=== PATIENT | male | born 1955 | race Caucasian/White ===

== ENCOUNTER → 2019-07-09 | Outpatient (CLI) | payer OTHER ==
[~2019-07-09] MED LIST: ASPI81TA83 PO; BACT800T OR; CLARITIN-D PO; EXCETAB PO; NAPROXEN SODIUM PO; SILD25TA OR; VITA500T PO
--- NOTE | 2019-07-09 21:19 | ECHO ---
DATE OF PROCEDURE: 07/09/2019 REFERRING PROVIDER: Dr. Mauro Leonard PATIENT LOCATION: Outpatient. REASON FOR THE STUDY: Heart murmur, hyperlipidemia. 2D MEASUREMENTS: IVS: 1.3 cm LV: 4.4 cm LVPW: 1.1 cm LA: 3.5 cm Aorta: 3.5 cm IVC: 1.4 cm DOPPLER MEASUREMENTS: Peak velocity across the aortic valve: 1.2 meters per second. Peak velocity across the LVOT: 0.8 meters per second. Mitral E: 0.66, Mitral A: 0.92 with a ratio of 0.7. 2D COMMENTS: 1. Normal left ventricular size with mildly increased left ventricular wall thickness. Left ventricular systolic function is normal, estimated at 60-65%. 2. Normal left atrium. Normal right atrium and right ventricle. 3. The atrial septum appeared to be normal without evidence of defect or shunt. 4. Normal aortic root. 5. No pericardial effusion seen. 6. Mildly calcified aortic valve with normal leaflet excursion. Mildly calcified mitral annulus with normal anterior mitral valve leaflet motion. Normal tricuspid valve and pulmonic valve. The proximal pulmonary artery branches were not well visualized. 7. The inferior vena cava was normal in size, central venous pressure is most likely normal. DOPPLER: Only trace aortic regurgitation detected. Abnormal relaxation pattern was noted across the mitral valve leaflets as well as the mitral valve annulus consistent with features of grade 1 left ventricular diastolic dysfunction. IMPRESSION: 1. Normal global left ventricular systolic function with mild concentric left ventricular hypertrophy. There are some features of left ventricular diastolic dysfunction manifested by abnormal relaxation. 2. Aortic valve sclerosis with trace aortic regurgitation but no aortic stenosis. 3. Isolated mitral annulus calcification.
== END ==
LOC: M CARPUL 08:47
PROVIDERS: ATTEND Internal Medicine
DX: E78.2 Mixed hyperlipidemia (principal); Z87.891 Personal history of nicotine dependence; G47.30 Sleep apnea, unspecified

== ENCOUNTER → 2020-05-11 | Outpatient (CLI) | payer SELFPAY | LOC: M LABSMTC 11:19 | PROVIDERS: ATTEND Pediatrics | DX: Z20.828 Contact with and (suspected) exposure to other viral communicable diseases (principal) ==

== ENCOUNTER → 2021-12-17 | Outpatient (REF) | LOC: M PLAIMG 11:15 | PROVIDERS: ATTEND Internal Medicine | DX: M19.90 Unspecified osteoarthritis, unspecified site (principal) ==

== ENCOUNTER 2022-09-16 14:22 | Day surgery (SDC) | payer MEDICARE, OTHER ==
[~2022-09-16] VITALS: Ht 188 cm; Wt 105.9 kg
[~2022-09-16 14:22] MED LIST changes: +ASPI-1 PO; +BUSP10TA PO; +BUSP10TA79 PO; +COQ1200C PO; +CelecoXIB 400 MG CAP PO ONE; +KORE1000 PO; +LORA-674 PO; +PLAQ200T4 PO; +ROSU40TA4 PO; +UNRESOLVED CLARIFICATION ENTRY XX SCH; +VITA100093 PO; +VITA500T16 PO; +VITACAP8 PO
[2022-09-16] MEDS ORDERED: LR 1,000 ML IV SCH (14:30)
[2022-09-16] MEDS ORDERED: AMPICILLIN SOD/SULBACTAM SOD 3 GM in D5W MINI-BAG PLUS 100 ML IV ONE (15:00)
[2022-09-16] MEDS ORDERED: CelecoXIB 400 MG CAP PO ONE (15:00)
[2022-09-16] MEDS ORDERED: MIDAZOLAM INJ 2MG/2ML VIAL As Ordered ONE (15:34)
[2022-09-16] MEDS ORDERED: propofoL 200 MG/20 ML VIAL As Ordered ONE (15:34)
[2022-09-16] MEDS ORDERED: ROCURONIUM BROMIDE 50MG/5ML VIAL As Ordered ONE (15:34)
[2022-09-16] MEDS ORDERED: fentaNYL 250 MCG/5 ML INJECTION As Ordered ONE (15:34)
[2022-09-16] MEDS ORDERED: LIDOCAINE 2% 100MG/5ML SDV (FOR ANES.) As Ordered ONE (15:34)
[2022-09-16] MEDS ORDERED: ACETAMINOPHEN 1000MG 100ML IV BAG As Ordered ONE (16:59)
[2022-09-16] MEDS ORDERED: BUPIVACAINE HCL 0.25% 30ML VIAL As Ordered ONE (17:05)
[2022-09-16] MEDS ORDERED: BUPIVACAINE HCL 0.5% 30ML VIAL As Ordered ONE (17:05)
[2022-09-16] MEDS ORDERED: LIDOCAINE 1% SDV 30ML VIAL As Ordered ONE (17:05)
[2022-09-16] MEDS ORDERED: ONDANSETRON 4MG 2ML VIAL As Ordered ONE (17:35)
[2022-09-16] MEDS ORDERED: METOCLOPRAMIDE INJ 10MG/2ML VIAL As Ordered ONE (17:37)
[2022-09-16] MEDS ORDERED: SUGAMMADEX SODIUM 500 MG/5 ML VIAL (BRIDION) As Ordered ONE (18:46)
[2022-09-16] MEDS ORDERED: HYDROMORPHONE HCL 0.5 MG/ 0.5 ML SYRINGE IV PRN (19:05)
[2022-09-16] MEDS ORDERED: oxyCODONE 5MG TAB PO PRN (19:05)
[2022-09-16] MEDS ORDERED: ONDANSETRON 4MG 2ML VIAL IV PRN (19:05)
[2022-09-16] MEDS ORDERED: fentaNYL 100 MCG/2 ML INJECTION IV PRN (19:05)
[2022-09-16 20:05] VITALS: BP 143/86
== END 2022-09-16 20:16 | disposition home or self-care (01) ==
LOC: M SDC 14:22
PROVIDERS: ATTEND Surgery
DX: K40.31 Unilateral inguinal hernia, with obstruction, without gangrene, recurrent (principal); D17.6 Benign lipomatous neoplasm of spermatic cord; E78.00 Pure hypercholesterolemia, unspecified; K21.9 Gastro-esophageal reflux disease without esophagitis; M19.90 Unspecified osteoarthritis, unspecified site; F41.9 Anxiety disorder, unspecified; M54.9 Dorsalgia, unspecified; F43.10 Post-traumatic stress disorder, unspecified; R51.9 Headache, unspecified; G47.30 Sleep apnea, unspecified; Z87.891 Personal history of nicotine dependence; Z79.899 Other long term (current) drug therapy; Z79.82 Long term (current) use of aspirin
CPT/HCPCS: 49651; 88304; C1781; J0131; J0295; J1100; J2250; J2405; J2765; J3010; S2900

== ENCOUNTER 2022-10-29 11:04 | Inpatient (IN) | payer OTHER ==
[~2022-10-29] VITALS: Ht 188 cm; Wt 111.6 kg
[~2022-10-29 11:04] MED LIST changes: -CelecoXIB 400 MG CAP PO ONE; -UNRESOLVED CLARIFICATION ENTRY XX SCH
[2022-10-29] MEDS ORDERED: ACET-683 PO (11:20)
[2022-10-29] MEDS ORDERED: NS 1,000 ML IV ONE (12:15)
[2022-10-29] MEDS ORDERED: cefTRIAXone SOD 2 GM in D5W MINI-BAG PLUS 50 ML IV ONE (12:20)
[2022-10-29 12:29] LABS: HEMATOCRIT 42.3 % (42.0-52.0); HEMOGLOBIN 14.9 g/dl (13.5-17.5); MEAN CORPUSCULAR HEMOGLOBIN 28.8 pg (27.0-33.0); MEAN CORPUSCULAR HGB CONC 35.2 g/dl (32.0-36.5); MEAN CORPUSCULAR VOLUME 81.8 fl (80.0-96.0); RED BLOOD COUNT 5.17 10^6/uL (4.30-6.10); WHITE BLOOD COUNT 7.9 10^3/uL (4.0-10.0)
[2022-10-29 12:38] LABS: INR 1.11; PROTHROMBIN TIME 14.5 SECONDS (12.5-14.5)
[2022-10-29] MEDS ORDERED: ACETAMINOPHEN TAB 650MG DOSE (2X325MG) PO ONE (12:40)
[2022-10-29 12:42] LABS: PLATELET COUNT, AUTOMATED 66 10^3/uL (150-450)
[2022-10-29 12:48] LABS: ATYPICAL LYMPH 6 % (0-5); BASOPHILS 1 % (0-1); EOSINOPHILS 1 % (0-3); LYMPHOCYTES 13 % (16-44); MONOCYTES 5 % (0-5); NEUTROPHILS 62 % (28-66)
[2022-10-29 12:55] LABS: AMYLASE 47 U/L (30-118)
[2022-10-29 12:56] LABS: ALBUMIN 3.2 G/DL (3.2-5.2); ALKALINE PHOSPHATASE 135 U/L (46-116); ALT/SGPT 137 U/L (7.0-40); AST/SGOT 118 U/L (<34); BILIRUBIN,DIRECT 1.2 MG/DL (<0.4); BILIRUBIN,TOTAL 2.9 MG/DL (0.3-1.2); BLOOD UREA NITROGEN 15 MG/DL (9-23); CALCIUM LEVEL 8.1 MG/DL (8.3-10.6); CARBON DIOXIDE LEVEL 25 MMOL/L (20-31); CHLORIDE LEVEL 95 MMOL/L (98-107); CREATININE FOR GFR 0.84 MG/DL (0.70-1.30); GLOMERULAR FILTRATION RATE > 60.0 (>49); GLUCOSE, FASTING 127 MG/DL (74-106); POTASSIUM SERUM 3.7 MMOL/L (3.5-5.1); SODIUM LEVEL 128 MMOL/L (136-145); TOTAL PROTEIN 7.2 G/DL (5.7-8.2)
[2022-10-29 13:11] LABS: PLATELET ESTIMATE DECREASED (NORMAL)
[2022-10-29] MEDS ORDERED: NS 2,000 ML IV ONE (14:25)
[2022-10-29] MEDS ORDERED: IBUPROFEN 600MG TAB PO ONE (14:45)
[2022-10-29] MEDS: AZITHROMYCIN INJ 500 MG, VIAL MATE ADAPTER 1 EACH in NS 250 ML IV SCH (14:52)
[2022-10-29] MEDS ORDERED: [UNRECOGNIZED DRUG - CODE] PO (14:54)
[2022-10-29] MEDS ORDERED: HOME MED LIST COMPLETE! XX SCH (14:55)
[2022-10-29 15:12] LABS: APPEARANCE, URINE MANUAL CLEAR (CLEAR); COLOR, URINE MANUAL AMBER (YELLOW)
[2022-10-29 15:13] LABS: GLUCOSE, URINE (UA) MANUAL NEGATIVE (NEGATIVE); PH,URINE MAN 5.5 UNITS (5.0 - 7.0); PROTEIN, URINE MANUAL 2+ mg/dL (NEGATIVE); UROBILINOGEN, URINE MANUAL 12 mg/dl (NORMAL)
[2022-10-29 15:14] LABS: BILIRUBIN, URINE MANUAL OBSCURED (NEGATIVE); KETONE, URINE MANUAL OBSCURED mg/dL (NEGATIVE); LEUKOCYTE ESTERASE, URINE MAN OBSCURED (NEGATIVE); NITRITE, URINE MANUAL OBSCURED (NEGATIVE)
[2022-10-29 15:15] LABS: BLOOD URINE MANUAL OBSCURED (NEGATIVE)
[2022-10-29 15:30] LABS: SQUAMOUS EPITHELIAL CELL URINE SMALL AMOUNT /hpf (SMALL AMT)
[2022-10-29 15:31] LABS: AMORPHOUS SEDIMENT, URINE MOD AMOUNT (NEGATIVE); BACTERIA, URINE SMALL AMOUNT; MUCUS, URINE SMALL AMOUNT (NEGATIVE); RENAL EPITHELIAL CELLS, URINE SMALL AMOUNT /hpf
[2022-10-29 16:27] LABS: OSMOLALITY SERUM 265 MOSM/KG (280-301)
[2022-10-29 16:30] LABS: BLOOD UREA NITROGEN 15 MG/DL (9-23); CALCIUM LEVEL 7.2 MG/DL (8.3-10.6); CARBON DIOXIDE LEVEL 24 MMOL/L (20-31); CHLORIDE LEVEL 100 MMOL/L (98-107); CREATININE FOR GFR 0.84 MG/DL (0.70-1.30); GLOMERULAR FILTRATION RATE > 60.0 (>49); GLUCOSE, FASTING 127 MG/DL (74-106); POTASSIUM SERUM 3.5 MMOL/L (3.5-5.1); SODIUM LEVEL 130 MMOL/L (136-145)
[2022-10-29 16:36] VITALS: BP 109/67; TEMP 97.2; O2SAT 97
[2022-10-29 16:39] LABS: ACETAMINOPHEN LEVEL 6.4 UG/ML (10.0-20.0)
[2022-10-29 16:50] LABS: HEPATITIS B SURFACE ANTIGEN NEGATIVE (NEGATIVE)
[2022-10-29 17:10] LABS: HEPATITIS C VIRUS ABY INDEX 0.1 INDEX (<0.8)
[2022-10-29 17:11] LABS: HEPATITIS B CORE ANTIBODY IGM NEGATIVE (NEGATIVE)
[2022-10-29] MEDS: busPIRone 5 MG TAB PO SCH (17:17)
[2022-10-29] MEDS: NS 1,000 ML IV SCH (17:18)
[2022-10-29 20:32] VITALS: BP 115/65; TEMP 98.6; O2SAT 96
[2022-10-29] MEDS: HYDROXYCHLOROQUINE 200 MG TAB PO SCH (21:48)
[2022-10-29] MEDS: busPIRone 10 MG TAB PO SCH (21:48)
[2022-10-29] MEDS: ATOVAQUONE SUSP 750MG/5ML 210 ML BTL PO SCH (21:48)
[2022-10-29 22:04] LABS: BLOOD UREA NITROGEN 17 MG/DL (9-23); CALCIUM LEVEL 7.5 MG/DL (8.3-10.6); CARBON DIOXIDE LEVEL 24 MMOL/L (20-31); CHLORIDE LEVEL 101 MMOL/L (98-107); CREATININE FOR GFR 0.84 MG/DL (0.70-1.30); GLOMERULAR FILTRATION RATE > 60.0 (>49); GLUCOSE, FASTING 107 MG/DL (74-106); POTASSIUM SERUM 4.1 MMOL/L (3.5-5.1); SODIUM LEVEL 133 MMOL/L (136-145)
[2022-10-30] VITALS (8 sets, daily range): BP systolic 104–149; BP diastolic 55–83; TEMP 97.8–103.4; O2SAT 93–98
[2022-10-30] MEDS: NS 1,000 ML IV SCH (00:40)
[2022-10-30] MEDS: NAPROXEN 250 MG TAB PO PRN (04:53)
[2022-10-30 06:53] LABS: HEMATOCRIT 36.6 % (42.0-52.0); MEAN CORPUSCULAR HEMOGLOBIN 28.4 pg (27.0-33.0); MEAN CORPUSCULAR HGB CONC 33.9 g/dl (32.0-36.5); MEAN CORPUSCULAR VOLUME 83.8 fl (80.0-96.0); RED BLOOD COUNT 4.37 10^6/uL (4.30-6.10); WHITE BLOOD COUNT 5.8 10^3/uL (4.0-10.0)
[2022-10-30 07:02] LABS: PLATELET COUNT, AUTOMATED 62 10^3/uL (150-450)
[2022-10-30 07:03] LABS: HEMOGLOBIN 12.4 g/dl (13.5-17.5)
[2022-10-30 07:14] LABS: ALBUMIN 2.5 G/DL (3.2-5.2); ALKALINE PHOSPHATASE 134 U/L (46-116); ALT/SGPT 145 U/L (7.0-40); AST/SGOT 148 U/L (<34); BILIRUBIN,TOTAL 2.5 MG/DL (0.3-1.2); BLOOD UREA NITROGEN 12 MG/DL (9-23); CALCIUM LEVEL 7.7 MG/DL (8.3-10.6); CARBON DIOXIDE LEVEL 24 MMOL/L (20-31); CHLORIDE LEVEL 99 MMOL/L (98-107); CREATININE FOR GFR 0.71 MG/DL (0.70-1.30); GLOMERULAR FILTRATION RATE > 60.0 (>49); GLUCOSE, FASTING 143 MG/DL (74-106); MAGNESIUM LEVEL 1.2 MG/DL (1.8-2.4); PHOSPHORUS LEVEL 1.4 MG/DL (2.4-5.1); POTASSIUM SERUM 3.3 MMOL/L (3.5-5.1); SODIUM LEVEL 131 MMOL/L (136-145); TOTAL PROTEIN 5.8 G/DL (5.7-8.2)
[2022-10-30 07:29] LABS: ATYPICAL LYMPH 2 % (0-5); LYMPHOCYTES 10 % (16-44); MONOCYTES 4 % (0-5); NEUTROPHILS 77 % (28-66)
[2022-10-30 07:31] LABS: PLATELET ESTIMATE DECREASED (NORMAL)
[2022-10-30 07:33] LABS: SMUDGE CELLS 1+
[2022-10-30] MEDS ORDERED: POTASSIUM CHLORIDE 10MEQ SR TABLET PO ONE (08:00)
[2022-10-30] MEDS: busPIRone 10 MG TAB PO SCH ×2 (08:20→20:16)
[2022-10-30] MEDS: LORATADINE 10 MG TAB PO SCH (08:20)
[2022-10-30] MEDS: VITAMIN D 1,000 INTERNATIONAL UNITS TABLET PO SCH (08:20)
[2022-10-30] MEDS: MAG SULF 1GM/100ML (MAG RUN) 1 GM in IV 1 EA IV SCH ×2 (08:20→09:38)
[2022-10-30] MEDS: HYDROXYCHLOROQUINE 200 MG TAB PO SCH ×2 (08:20→20:16)
[2022-10-30] MEDS: ATOVAQUONE SUSP 750MG/5ML 210 ML BTL PO SCH ×2 (08:20→20:17)
[2022-10-30] MEDS ORDERED: ROSUVASTATIN 10 MG TAB (CRESTOR) PO SCH (09:00)
[2022-10-30] MEDS ORDERED: SODIUM PHOSPHATE INJ 20 MMOL in D5W 250 ML IV ONE (10:00)
[2022-10-30] MEDS ORDERED: NAPROXEN 250 MG TAB PO ONE (13:00)
[2022-10-30] MEDS: AZITHROMYCIN INJ 500 MG, VIAL MATE ADAPTER 1 EACH in NS 250 ML IV SCH (13:21)
[2022-10-30] MEDS: busPIRone 5 MG TAB PO SCH (13:21)
[2022-10-31] VITALS (9 sets, daily range): BP systolic 112–142; BP diastolic 65–90; TEMP 97.6–101.6; O2SAT 95–97
[2022-10-31] MEDS: NAPROXEN 250 MG TAB PO PRN ×2 (04:19→15:45)
[2022-10-31 04:21] LABS: HEMATOCRIT 35.9 % (42.0-52.0); HEMOGLOBIN 12.5 g/dl (13.5-17.5); MEAN CORPUSCULAR HEMOGLOBIN 28.5 pg (27.0-33.0); MEAN CORPUSCULAR HGB CONC 34.8 g/dl (32.0-36.5); RED BLOOD COUNT 4.38 10^6/uL (4.30-6.10); WHITE BLOOD COUNT 6.2 10^3/uL (4.0-10.0)
[2022-10-31 04:23] LABS: PLATELET COUNT, AUTOMATED 45 10^3/uL (150-450)
[2022-10-31 04:42] LABS: ATYPICAL LYMPH 6 % (0-5); LYMPHOCYTES 9 % (16-44); MONOCYTES 2 % (0-5); NEUTROPHILS 81 % (28-66)
[2022-10-31 04:43] LABS: PLATELET ESTIMATE DECREASED (NORMAL); SMUDGE CELLS 1+
[2022-10-31 04:54] LABS: ALBUMIN 2.5 G/DL (3.2-5.2); ALKALINE PHOSPHATASE 151 U/L (46-116); ALT/SGPT 187 U/L (7.0-40); AST/SGOT 203 U/L (<34); BILIRUBIN,DIRECT 1.5 MG/DL (<0.4); BILIRUBIN,TOTAL 2.5 MG/DL (0.3-1.2); BLOOD UREA NITROGEN 13 MG/DL (9-23); CALCIUM LEVEL 7.3 MG/DL (8.3-10.6); CARBON DIOXIDE LEVEL 25 MMOL/L (20-31); CHLORIDE LEVEL 98 MMOL/L (98-107); CREATININE FOR GFR 0.64 MG/DL (0.70-1.30); GLOMERULAR FILTRATION RATE > 60.0 (>49); GLUCOSE, FASTING 138 MG/DL (74-106); MAGNESIUM LEVEL 1.7 MG/DL (1.8-2.4); PHOSPHORUS LEVEL 1.8 MG/DL (2.4-5.1); POTASSIUM SERUM 3.5 MMOL/L (3.5-5.1); SODIUM LEVEL 130 MMOL/L (136-145); TOTAL PROTEIN 5.8 G/DL (5.7-8.2)
[2022-10-31 04:59] LABS: BURR CELLS 1+; POLYCHROMASIA 1+
[2022-10-31] MEDS ORDERED: POTASSIUM CHLORIDE 10MEQ SR TABLET PO ONE (06:30)
[2022-10-31] MEDS: MAG SULF 1GM/100ML (MAG RUN) 1 GM in IV 1 EA IV SCH ×2 (06:44→07:50)
[2022-10-31] MEDS ORDERED: SODIUM PHOSPHATE INJ 20 MMOL in D5W 250 ML IV ONE (08:00)
[2022-10-31 12:32] LABS: INR 1.07; PROTHROMBIN TIME 14.1 SECONDS (12.5-14.5)
[2022-10-31 12:33] LABS: PARTIAL THROMBOPLASTIN TIME 36.5 SECONDS (24.8-34.2)
[2022-10-31] MEDS: LORATADINE 10 MG TAB PO SCH (13:27)
[2022-10-31] MEDS: HYDROXYCHLOROQUINE 200 MG TAB PO SCH ×2 (13:27→20:40)
[2022-10-31] MEDS: VITAMIN D 1,000 INTERNATIONAL UNITS TABLET PO SCH (13:27)
[2022-10-31] MEDS: busPIRone 5 MG TAB PO SCH (13:27)
[2022-10-31] MEDS: busPIRone 10 MG TAB PO SCH ×2 (13:27→20:40)
[2022-10-31] MEDS: AZITHROMYCIN 250MG TABLET PO SCH (13:28)
[2022-10-31] MEDS: ATOVAQUONE SUSP 750MG/5ML 210 ML BTL PO SCH ×2 (13:28→20:41)
[2022-11-01 04:00] VITALS: BP 112/70; TEMP 96.5; O2SAT 94
[2022-11-01 06:47] LABS: HEMATOCRIT 39.3 % (42.0-52.0); HEMOGLOBIN 13.5 g/dl (13.5-17.5); MEAN CORPUSCULAR HEMOGLOBIN 28.5 pg (27.0-33.0); MEAN CORPUSCULAR HGB CONC 34.4 g/dl (32.0-36.5); MEAN CORPUSCULAR VOLUME 83.1 fl (80.0-96.0); RED BLOOD COUNT 4.73 10^6/uL (4.30-6.10); WHITE BLOOD COUNT 6.3 10^3/uL (4.0-10.0)
[2022-11-01 06:48] LABS: PLATELET COUNT, AUTOMATED 51 10^3/uL (150-450)
[2022-11-01 07:02] LABS: ALBUMIN 2.7 G/DL (3.2-5.2); ALKALINE PHOSPHATASE 184 U/L (46-116); ALT/SGPT 247 U/L (7.0-40); AST/SGOT 249 U/L (<34); BILIRUBIN,TOTAL 2.8 MG/DL (0.3-1.2); BLOOD UREA NITROGEN 11 MG/DL (9-23); CALCIUM LEVEL 7.9 MG/DL (8.3-10.6); CARBON DIOXIDE LEVEL 28 MMOL/L (20-31); CHLORIDE LEVEL 99 MMOL/L (98-107); CREATININE FOR GFR 0.62 MG/DL (0.70-1.30); GLOMERULAR FILTRATION RATE > 60.0 (>49); GLUCOSE, FASTING 104 MG/DL (74-106); MAGNESIUM LEVEL 2.1 MG/DL (1.8-2.4); PHOSPHORUS LEVEL 2.6 MG/DL (2.4-5.1); POTASSIUM SERUM 3.5 MMOL/L (3.5-5.1); SODIUM LEVEL 133 MMOL/L (136-145); TOTAL PROTEIN 6.6 G/DL (5.7-8.2)
[2022-11-01 07:17] LABS: ATYPICAL LYMPH 4 % (0-5); LYMPHOCYTES 32 % (16-44); MONOCYTES 6 % (0-5); NEUTROPHILS 58 % (28-66); PLATELET ESTIMATE DECREASED (NORMAL)
[2022-11-01 07:18] LABS: ANISOCYTOSIS 1+; POIKILOCYTOSIS 1+; POLYCHROMASIA 1+
[2022-11-01 07:32] VITALS: BP 129/82; TEMP 99.4; O2SAT 96
[2022-11-01] MEDS: HYDROXYCHLOROQUINE 200 MG TAB PO SCH (08:58)
[2022-11-01] MEDS: LORATADINE 10 MG TAB PO SCH (08:58)
[2022-11-01] MEDS: VITAMIN D 1,000 INTERNATIONAL UNITS TABLET PO SCH (08:58)
[2022-11-01] MEDS: AZITHROMYCIN 250MG TABLET PO SCH (08:58)
[2022-11-01] MEDS: busPIRone 10 MG TAB PO SCH ×2 (08:58→20:43)
[2022-11-01] MEDS: ATOVAQUONE SUSP 750MG/5ML 210 ML BTL PO SCH ×2 (11:03→22:38)
[2022-11-01] MEDS: busPIRone 5 MG TAB PO SCH (14:54)
[2022-11-01] MEDS: DOXYCYCLINE HYCLATE 100MG TABLET PO SCH ×2 (14:54→20:43)
[2022-11-01 15:49] VITALS: BP 138/74; TEMP 98.4; O2SAT 94
[2022-11-01 20:00] VITALS: BP 134/77; TEMP 98.6; O2SAT 96
[2022-11-01 20:30] VITALS: BP 119/72; TEMP 97.5; O2SAT 96
[2022-11-02 01:55] VITALS: BP 126/75; TEMP 98; O2SAT 95
[2022-11-02 05:40] VITALS: BP 119/74; TEMP 97.2; O2SAT 98
[2022-11-02 06:31] LABS: HEMATOCRIT 38.2 % (42.0-52.0); MEAN CORPUSCULAR VOLUME 82.3 fl (80.0-96.0); RED BLOOD COUNT 4.64 10^6/uL (4.30-6.10); WHITE BLOOD COUNT 5.8 10^3/uL (4.0-10.0)
[2022-11-02 06:33] LABS: PLATELET COUNT, AUTOMATED 81 10^3/uL (150-450)
[2022-11-02 07:00] LABS: ALBUMIN 2.5 G/DL (3.2-5.2); ALKALINE PHOSPHATASE 180 U/L (46-116); ALT/SGPT 225 U/L (7.0-40); AST/SGOT 183 U/L (<34); BILIRUBIN,TOTAL 1.7 MG/DL (0.3-1.2); BLOOD UREA NITROGEN 11 MG/DL (9-23); CALCIUM LEVEL 8.3 MG/DL (8.3-10.6); CARBON DIOXIDE LEVEL 26 MMOL/L (20-31); CHLORIDE LEVEL 103 MMOL/L (98-107); CREATININE FOR GFR 0.59 MG/DL (0.70-1.30); GLOMERULAR FILTRATION RATE > 60.0 (>49); GLUCOSE, FASTING 105 MG/DL (74-106); SODIUM LEVEL 134 MMOL/L (136-145); TOTAL PROTEIN 6.8 G/DL (5.7-8.2)
[2022-11-02] MEDS: DOXYCYCLINE HYCLATE 100MG TABLET PO SCH ×2 (07:49→21:00)
[2022-11-02] MEDS: ATOVAQUONE SUSP 750MG/5ML 210 ML BTL PO SCH ×2 (07:50→21:01)
[2022-11-02] MEDS: AZITHROMYCIN 250MG TABLET PO SCH (07:50)
[2022-11-02] MEDS: LORATADINE 10 MG TAB PO SCH (07:50)
[2022-11-02] MEDS: VITAMIN D 1,000 INTERNATIONAL UNITS TABLET PO SCH (07:50)
[2022-11-02] MEDS: busPIRone 10 MG TAB PO SCH ×2 (07:50→21:00)
[2022-11-02 10:00] VITALS: BP 135/79; TEMP 98.8; O2SAT 98
[2022-11-02 14:00] VITALS: BP 138/82; TEMP 98.2; O2SAT 97
[2022-11-02] MEDS: busPIRone 5 MG TAB PO SCH (14:43)
[2022-11-02] MEDS: LACTOBACILLUS ACIDOPHILUS CAP (BACID) PO SCH (18:13)
[2022-11-02 22:00] VITALS: BP 134/89; TEMP 98.2; O2SAT 97
[2022-11-02 23:42] VITALS: BP 135/91; TEMP 98.4; O2SAT 98
[2022-11-03 03:40] VITALS: BP 129/81; TEMP 97.5; O2SAT 96
[2022-11-03 07:16] LABS: HEMOGLOBIN 12.1 g/dl (13.5-17.5); MEAN CORPUSCULAR HEMOGLOBIN 27.7 pg (27.0-33.0); MEAN CORPUSCULAR HGB CONC 33.6 g/dl (32.0-36.5); MEAN CORPUSCULAR VOLUME 82.4 fl (80.0-96.0); PLATELET COUNT, AUTOMATED 140 10^3/uL (150-450); RED BLOOD COUNT 4.37 10^6/uL (4.30-6.10); WHITE BLOOD COUNT 6.7 10^3/uL (4.0-10.0)
[2022-11-03 07:40] LABS: ALBUMIN 2.5 G/DL (3.2-5.2); ALKALINE PHOSPHATASE 169 U/L (46-116); ALT/SGPT 205 U/L (7.0-40); AST/SGOT 129 U/L (<34); BILIRUBIN,TOTAL 1.1 MG/DL (0.3-1.2); BLOOD UREA NITROGEN 9 MG/DL (9-23); CALCIUM LEVEL 8.8 MG/DL (8.3-10.6); CARBON DIOXIDE LEVEL 26 MMOL/L (20-31); CHLORIDE LEVEL 101 MMOL/L (98-107); CREATININE FOR GFR 0.58 MG/DL (0.70-1.30); GLOMERULAR FILTRATION RATE > 60.0 (>49); GLUCOSE, FASTING 97 MG/DL (74-106); POTASSIUM SERUM 4.2 MMOL/L (3.5-5.1); SODIUM LEVEL 132 MMOL/L (136-145); TOTAL PROTEIN 6.8 G/DL (5.7-8.2)
[2022-11-03] MEDS: AZITHROMYCIN 250MG TABLET PO SCH (08:55)
[2022-11-03] MEDS: ATOVAQUONE SUSP 750MG/5ML 210 ML BTL PO SCH ×2 (08:55→20:19)
[2022-11-03] MEDS: DOXYCYCLINE HYCLATE 100MG TABLET PO SCH ×2 (08:55→20:19)
[2022-11-03] MEDS: LORATADINE 10 MG TAB PO SCH (08:55)
[2022-11-03] MEDS: VITAMIN D 1,000 INTERNATIONAL UNITS TABLET PO SCH (08:55)
[2022-11-03] MEDS: LACTOBACILLUS ACIDOPHILUS CAP (BACID) PO SCH ×2 (08:55→17:28)
[2022-11-03] MEDS: busPIRone 10 MG TAB PO SCH ×2 (08:55→20:19)
[2022-11-03] MEDS ORDERED: DOXY100T PO (09:24)
[2022-11-03] MEDS ORDERED: RISATAB3 PO (09:24)
[2022-11-03] MEDS ORDERED: AZIT500T5 PO (09:24)
[2022-11-03 10:00] VITALS: BP 137/82; TEMP 97.7; O2SAT 96
[2022-11-03 14:00] VITALS: BP 133/84; TEMP 97.9; O2SAT 96
[2022-11-03] MEDS: busPIRone 5 MG TAB PO SCH (14:06)
[2022-11-03 18:00] VITALS: BP 142/82; TEMP 98.1; O2SAT 96
[2022-11-03 21:00] VITALS: BP 144/78; TEMP 97.9; O2SAT 96
[2022-11-04 02:00] VITALS: BP 141/77; TEMP 98.6; O2SAT 95
[2022-11-04 04:00] VITALS: BP 139/83
[2022-11-04 05:20] VITALS: TEMP 97.7; O2SAT 95
[2022-11-04 06:25] LABS: HEMATOCRIT 38.2 % (42.0-52.0); HEMOGLOBIN 12.8 g/dl (13.5-17.5); MEAN CORPUSCULAR HEMOGLOBIN 28.2 pg (27.0-33.0); MEAN CORPUSCULAR HGB CONC 33.5 g/dl (32.0-36.5); MEAN CORPUSCULAR VOLUME 84.1 fl (80.0-96.0); PLATELET COUNT, AUTOMATED 223 10^3/uL (150-450); RED BLOOD COUNT 4.54 10^6/uL (4.30-6.10); WHITE BLOOD COUNT 9.7 10^3/uL (4.0-10.0)
[2022-11-04 06:53] LABS: ALBUMIN 2.9 G/DL (3.2-5.2); ALKALINE PHOSPHATASE 186 U/L (46-116); ALT/SGPT 210 U/L (7.0-40); AST/SGOT 111 U/L (<34); BILIRUBIN,TOTAL 0.9 MG/DL (0.3-1.2); BLOOD UREA NITROGEN 11 MG/DL (9-23); CALCIUM LEVEL 8.4 MG/DL (8.3-10.6); CARBON DIOXIDE LEVEL 27 MMOL/L (20-31); CHLORIDE LEVEL 100 MMOL/L (98-107); CREATININE FOR GFR 0.59 MG/DL (0.70-1.30); GLOMERULAR FILTRATION RATE > 60.0 (>49); GLUCOSE, FASTING 103 MG/DL (74-106); POTASSIUM SERUM 4.6 MMOL/L (3.5-5.1); SODIUM LEVEL 133 MMOL/L (136-145); TOTAL PROTEIN 7.4 G/DL (5.7-8.2)
[2022-11-04] MEDS: LACTOBACILLUS ACIDOPHILUS CAP (BACID) PO SCH (07:45)
[2022-11-04] MEDS: AZITHROMYCIN 250MG TABLET PO SCH (07:45)
[2022-11-04] MEDS: busPIRone 10 MG TAB PO SCH (07:45)
[2022-11-04] MEDS: VITAMIN D 1,000 INTERNATIONAL UNITS TABLET PO SCH (07:45)
[2022-11-04] MEDS: LORATADINE 10 MG TAB PO SCH (07:45)
[2022-11-04] MEDS: DOXYCYCLINE HYCLATE 100MG TABLET PO SCH (07:45)
[2022-11-04] MEDS: ATOVAQUONE SUSP 750MG/5ML 210 ML BTL PO SCH (07:46)
== END 2022-11-04 10:51 | disposition home or self-care (01) | DRG 872 ==
LOC: M ED 11:04 → M ED INP 14:09 → ENRESERV 15:31 → M PCU 16:37 → M MSPAV 11-01 20:24
PROVIDERS: ADMIT Internal Medicine; ATTEND Internal Medicine
DX: A41.89 Other specified sepsis (principal); E87.1 Hypo-osmolality and hyponatremia; B60.01 Babesiosis due to Babesia microti; A69.20 Lyme disease, unspecified; F43.10 Post-traumatic stress disorder, unspecified; M06.9 Rheumatoid arthritis, unspecified; E83.39 Other disorders of phosphorus metabolism; R74.01 Elevation of levels of liver transaminase levels; E83.42 Hypomagnesemia; R16.1 Splenomegaly, not elsewhere classified; D69.6 Thrombocytopenia, unspecified; E78.5 Hyperlipidemia, unspecified; Z85.820 Personal history of malignant melanoma of skin; Z87.891 Personal history of nicotine dependence; Z79.899 Other long term (current) drug therapy

== ENCOUNTER 2022-11-07 09:04 | Inpatient (IN) | payer MEDICARE, OTHER ==
[~2022-11-07] VITALS: Ht 188 cm; Wt 101.5 kg
[~2022-11-07 09:04] MED LIST changes: +ACET-683 PO; +AZIT500T5 PO; +AZITHROMYCIN 250MG TABLET PO SCH; +DOXY100T PO; +MALARONE 250/100MG (ATOVAQUONE/PROGUANIL) TABLET PO SCH; +RISATAB3 PO; +[UNRECOGNIZED DRUG - CODE] PO
[2022-11-07] MEDS ORDERED: ATOV1TAB PO (09:57)
[2022-11-07 10:01] LABS: BASO # 0.1 10^3/uL (0.0-0.2); BASO % 0.6 % (0.0-1.0); EOS # 0.1 10^3/uL (0.0-0.5); EOS % 0.6 % (0.0-3.0); HEMOGLOBIN 13.3 g/dl (13.5-17.5); LYMPH # 2.4 10^3/uL (1.5-5.0); LYMPH % 23.8 % (24.0-44.0); MEAN CORPUSCULAR HEMOGLOBIN 28.7 pg (27.0-33.0); MEAN CORPUSCULAR HGB CONC 33.3 g/dl (32.0-36.5); MEAN CORPUSCULAR VOLUME 86.2 fl (80.0-96.0); MONO # 1.2 10^3/uL (0.0-0.8); MONO % 11.9 % (2.0-8.0); NEUTROPHILS # 6.1 10^3/uL (1.5-8.5); PLATELET COUNT, AUTOMATED 464 10^3/uL (150-450); RED BLOOD COUNT 4.64 10^6/uL (4.30-6.10); WHITE BLOOD COUNT 9.9 10^3/uL (4.0-10.0)
[2022-11-07] MEDS ORDERED: FLEET OIL RETENTION ENEMA PR ONE (10:25)
[2022-11-07 10:31] LABS: ETHYL ALCOHOL (ETHANOL) < 0.003 % (0.000-0.010)
[2022-11-07 10:32] LABS: ACETAMINOPHEN LEVEL < 2.0 UG/ML (10.0-20.0); ALBUMIN 3.2 G/DL (3.2-5.2); ALKALINE PHOSPHATASE 133 U/L (46-116); ALT/SGPT 107 U/L (7.0-40); AST/SGOT 40 U/L (<34); BILIRUBIN,DIRECT 0.6 MG/DL (<0.4); BILIRUBIN,TOTAL 1.2 MG/DL (0.3-1.2); BLOOD UREA NITROGEN 11 MG/DL (9-23); CALCIUM LEVEL 9.6 MG/DL (8.3-10.6); CARBON DIOXIDE LEVEL 26 MMOL/L (20-31); CHLORIDE LEVEL 103 MMOL/L (98-107); CK-MB VALUE MASS 1.5 NG/ML (<3.6); CPK CREATINE PHOSPHOKINASE 52 U/L (46-171); CREATININE FOR GFR 0.72 MG/DL (0.70-1.30); GLOMERULAR FILTRATION RATE > 60.0 (>49); GLUCOSE, FASTING 110 MG/DL (74-106); MB/CK RELATIVE INDEX 2.88 (< OR =4); POTASSIUM SERUM 4.7 MMOL/L (3.5-5.1); SALICYLATE LEVEL < 3.0 MG/DL (<30); SODIUM LEVEL 132 MMOL/L (136-145); TOTAL PROTEIN 7.7 G/DL (5.7-8.2)
[2022-11-07 10:34] LABS: THYROID STIMULATING HORMONE 0.888 uIU/ML (0.55-4.78)
[2022-11-07 10:38] LABS: RSV AMPLIFICATION NEGATIVE (NEGATIVE)
[2022-11-07 10:43] LABS: OSMOLALITY SERUM 282 MOSM/KG (280-301)
[2022-11-07 12:00] LABS: AMPHETAMINES LEVEL URINE NEGATIVE (NEGATIVE); BARBITURATES URINE NEGATIVE (NEGATIVE); BENZODIAZEPINES URINE NEGATIVE (NEGATIVE); COCAINE METABOLITE URINE NEGATIVE (NEGATIVE); METHADONE URINE NEGATIVE (NEGATIVE); OPIATES URINE NEGATIVE (NEGATIVE); PHENCYCLIDINE URINE NEGATIVE (NEGATIVE)
[2022-11-07 12:02] LABS: CANNABINOIDS URINE POSITIVE (NEGATIVE)
[2022-11-07] MEDS ORDERED: MED REC IN PROGRESS XX SCH (13:20)
[2022-11-07] MEDS ORDERED: HOME MED LIST COMPLETE! XX SCH (13:55)
[2022-11-07 13:56] LABS: ABG BASE EXCESS 1.3 (-2.0-2.0); ABG HCO3 24.7 MMOL/L (22.0-26.0); ABG O2 SATURATION 97.6 % (95.0-99.0); ABG PARTIAL PRESSURE CO2 35.5 mmHg (35.0-45.0); ABG PARTIAL PRESSURE O2 93.8 mmHg (75.0-100.0); ABG STANDARD HCO3 25.6 MMOL/L. (22.0-26.0); ABG TOTAL CO2 25.8 MMOL/L (23.0-31.0); ABG pH (ARTERIAL) 7.461 UNITS (7.350-7.450)
[2022-11-07 15:40] VITALS: BP 141/94; TEMP 98.1; O2SAT 96
[2022-11-07] MEDS: LORATADINE 10 MG TAB PO SCH (16:20)
[2022-11-07] MEDS: VITAMIN D 1,000 INTERNATIONAL UNITS TABLET PO SCH (16:20)
[2022-11-07] MEDS: ROSUVASTATIN 10 MG TAB (CRESTOR) PO SCH (16:21)
[2022-11-07] MEDS: ASCORBIC ACID 500 MG TAB PO SCH (16:21)
[2022-11-07] MEDS: LACTOBACILLUS ACIDOPHILUS CAP (BACID) PO SCH (16:21)
[2022-11-07] MEDS: busPIRone 5 MG TAB PO SCH (16:24)
[2022-11-07 21:00] VITALS: BP 147/88; TEMP 98.1; O2SAT 97
[2022-11-07] MEDS ORDERED: DOXYCYCLINE HYCLATE 100MG TABLET PO SCH (21:00)
[2022-11-07] MEDS: busPIRone 10 MG TAB PO SCH (21:33)
[2022-11-08 05:38] VITALS: BP 141/90; TEMP 98.1; O2SAT 97
[2022-11-08 06:00] VITALS: BP 141/90
[2022-11-08] MEDS: LACTOBACILLUS ACIDOPHILUS CAP (BACID) PO SCH ×2 (08:00→18:00)
[2022-11-08] MEDS ORDERED: HALOPERIDOL 5MG/ML 1ML VIAL IM STA (08:12)
[2022-11-08] MEDS ORDERED: OLANZapine 5 MG TAB PO ONE (08:55)
[2022-11-08] MEDS: ASCORBIC ACID 500 MG TAB PO SCH (08:56)
[2022-11-08] MEDS: busPIRone 10 MG TAB PO SCH ×2 (08:56→22:52)
[2022-11-08] MEDS: LORATADINE 10 MG TAB PO SCH (08:56)
[2022-11-08] MEDS: ROSUVASTATIN 10 MG TAB (CRESTOR) PO SCH (08:56)
[2022-11-08] MEDS: VITAMIN D 1,000 INTERNATIONAL UNITS TABLET PO SCH (08:56)
[2022-11-08] MEDS: busPIRone 5 MG TAB PO SCH (13:25)
[2022-11-08] MEDS: DIVALPROEX 500 MG TAB PO SCH ×2 (13:25→22:52)
[2022-11-08] MEDS: cefTRIAXone SOD 1 GM in D5W MINI-BAG PLUS 50 ML IV SCH (14:58)
[2022-11-08] MEDS: OLANZapine 5 MG TAB PO SCH (22:52)
[2022-11-09 01:23] VITALS: BP 110/74; TEMP 97.9; O2SAT 97
[2022-11-09 05:20] VITALS: BP 115/79; TEMP 97.9; O2SAT 98
[2022-11-09 05:46] LABS: HEMATOCRIT 42.4 % (42.0-52.0); HEMOGLOBIN 13.6 g/dl (13.5-17.5); MEAN CORPUSCULAR HEMOGLOBIN 28.6 pg (27.0-33.0); MEAN CORPUSCULAR HGB CONC 32.1 g/dl (32.0-36.5); MEAN CORPUSCULAR VOLUME 89.3 fl (80.0-96.0); PLATELET COUNT, AUTOMATED 517 10^3/uL (150-450); RED BLOOD COUNT 4.75 10^6/uL (4.30-6.10); WHITE BLOOD COUNT 10.7 10^3/uL (4.0-10.0)
[2022-11-09 06:00] VITALS: BP 115/79
[2022-11-09 06:21] LABS: ALBUMIN 3.1 G/DL (3.2-5.2); ALKALINE PHOSPHATASE 119 U/L (46-116); ALT/SGPT 74 U/L (7.0-40); AST/SGOT 38 U/L (<34); BILIRUBIN,TOTAL 1.4 MG/DL (0.3-1.2); BLOOD UREA NITROGEN 9 MG/DL (9-23); CALCIUM LEVEL 8.9 MG/DL (8.3-10.6); CARBON DIOXIDE LEVEL 28 MMOL/L (20-31); CHLORIDE LEVEL 102 MMOL/L (98-107); CREATININE FOR GFR 0.77 MG/DL (0.70-1.30); GLOMERULAR FILTRATION RATE > 60.0 (>49); GLUCOSE, FASTING 108 MG/DL (74-106); POTASSIUM SERUM 5.1 MMOL/L (3.5-5.1); SODIUM LEVEL 135 MMOL/L (136-145); TOTAL PROTEIN 7.6 G/DL (5.7-8.2)
[2022-11-09] MEDS: ROSUVASTATIN 10 MG TAB (CRESTOR) PO SCH (09:47)
[2022-11-09] MEDS: ASCORBIC ACID 500 MG TAB PO SCH (09:48)
[2022-11-09] MEDS: VITAMIN D 1,000 INTERNATIONAL UNITS TABLET PO SCH (09:48)
[2022-11-09] MEDS: DIVALPROEX 500 MG TAB PO SCH ×2 (09:48→21:35)
[2022-11-09] MEDS: LACTOBACILLUS ACIDOPHILUS CAP (BACID) PO SCH ×2 (09:48→18:11)
[2022-11-09] MEDS: LORATADINE 10 MG TAB PO SCH (09:48)
[2022-11-09] MEDS: busPIRone 10 MG TAB PO SCH ×2 (09:48→21:35)
[2022-11-09] MEDS ORDERED: PROHANCE 279.3MG/ML 15ML VIAL As Ordered ONE (12:06)
[2022-11-09] MEDS ORDERED: PROHANCE 279.3MG/ML 5ML VIAL As Ordered ONE (12:06)
[2022-11-09 14:00] VITALS: BP 111/83; TEMP 98.2; O2SAT 97
[2022-11-09] MEDS: cefTRIAXone SOD 1 GM in D5W MINI-BAG PLUS 50 ML IV SCH (14:13)
[2022-11-09] MEDS: busPIRone 5 MG TAB PO SCH (14:13)
[2022-11-09] MEDS: NICOTINE POLACRILEX 2 MG GUM PO PRN ×3 (16:13→21:51)
[2022-11-09 20:00] VITALS: BP 121/73; TEMP 97.9; O2SAT 96
[2022-11-09] MEDS: OLANZapine 5 MG TAB PO SCH (21:35)
[2022-11-10] MEDS: NICOTINE POLACRILEX 2 MG GUM PO PRN (04:30)
[2022-11-10 05:40] LABS: HEMATOCRIT 41.7 % (42.0-52.0); HEMOGLOBIN 13.6 g/dl (13.5-17.5); MEAN CORPUSCULAR HEMOGLOBIN 28.8 pg (27.0-33.0); MEAN CORPUSCULAR HGB CONC 32.6 g/dl (32.0-36.5); MEAN CORPUSCULAR VOLUME 88.2 fl (80.0-96.0); PLATELET COUNT, AUTOMATED 532 10^3/uL (150-450); RED BLOOD COUNT 4.73 10^6/uL (4.30-6.10); WHITE BLOOD COUNT 9.3 10^3/uL (4.0-10.0)
[2022-11-10 06:00] VITALS: BP 122/89; TEMP 97.7; O2SAT 96
[2022-11-10 06:13] LABS: ALBUMIN 3.1 G/DL (3.2-5.2); ALKALINE PHOSPHATASE 122 U/L (46-116); ALT/SGPT 65 U/L (7.0-40); AST/SGOT 29 U/L (<34); BLOOD UREA NITROGEN 11 MG/DL (9-23); CALCIUM LEVEL 9.9 MG/DL (8.3-10.6); CARBON DIOXIDE LEVEL 26 MMOL/L (20-31); CHLORIDE LEVEL 103 MMOL/L (98-107); CREATININE FOR GFR 0.71 MG/DL (0.70-1.30); GLOMERULAR FILTRATION RATE > 60.0 (>49); GLUCOSE, FASTING 125 MG/DL (74-106); POTASSIUM SERUM 4.7 MMOL/L (3.5-5.1); SODIUM LEVEL 136 MMOL/L (136-145); TOTAL PROTEIN 7.7 G/DL (5.7-8.2)
[2022-11-10] MEDS ORDERED: OLAN1TAB16 PO (09:05)
[2022-11-10] MEDS ORDERED: DEPA1TAB3 PO (09:05)
[2022-11-10] MEDS ORDERED: AMOX500C PO (09:05)
[2022-11-10] MEDS: LORATADINE 10 MG TAB PO SCH (09:21)
[2022-11-10] MEDS: busPIRone 10 MG TAB PO SCH (09:21)
[2022-11-10] MEDS: VITAMIN D 1,000 INTERNATIONAL UNITS TABLET PO SCH (09:21)
[2022-11-10] MEDS: LACTOBACILLUS ACIDOPHILUS CAP (BACID) PO SCH (09:21)
[2022-11-10] MEDS: ASCORBIC ACID 500 MG TAB PO SCH (09:22)
[2022-11-10] MEDS: DIVALPROEX 500 MG TAB PO SCH (09:22)
[2022-11-10] MEDS: ROSUVASTATIN 10 MG TAB (CRESTOR) PO SCH (09:22)
[2022-11-10] MEDS: busPIRone 5 MG TAB PO SCH (12:18)
== END 2022-11-10 13:20 | DRG 71 ==
LOC: EDBD 09:04 → M ED 09:04 → M ED INP 13:50 → ENRESERV 15:00 → M MSPAV 15:53
PROVIDERS: ADMIT Internal Medicine; ATTEND Internal Medicine
DX: G93.41 Metabolic encephalopathy (principal); E87.1 Hypo-osmolality and hyponatremia; F30.9 Manic episode, unspecified; A69.20 Lyme disease, unspecified; R74.01 Elevation of levels of liver transaminase levels; K76.0 Fatty (change of) liver, not elsewhere classified; D69.6 Thrombocytopenia, unspecified; R16.1 Splenomegaly, not elsewhere classified; F43.10 Post-traumatic stress disorder, unspecified; M06.9 Rheumatoid arthritis, unspecified; F28 Other psychotic disorder not due to a substance or known physiological condition; J30.2 Other seasonal allergic rhinitis; E55.9 Vitamin D deficiency, unspecified; E78.5 Hyperlipidemia, unspecified; Z79.899 Other long term (current) drug therapy

== ENCOUNTER 2022-11-10 12:00 | Inpatient (IN) | payer OTHER ==
[~2022-11-10] VITALS: Ht 188 cm; Wt 101.2 kg
[~2022-11-10 12:00] MED LIST changes: +AMOX500C PO; +ATOV1TAB PO; -AZITHROMYCIN 250MG TABLET PO SCH; +DEPA1TAB3 PO; -MALARONE 250/100MG (ATOVAQUONE/PROGUANIL) TABLET PO SCH; +OLAN1TAB16 PO
[2022-11-10] MEDS ORDERED: diphenhydrAMINE 25MG CAP PO PRN (12:05)
[2022-11-10] MEDS ORDERED: OLANZapine ORAL DISINTEGRATING TAB 5MG PO PRN (12:05)
[2022-11-10] MEDS ORDERED: ACETAMINOPHEN TAB 650MG DOSE (2X325MG) PO PRN (12:05)
[2022-11-10] MEDS ORDERED: MOM 30ML SUSPENSION UDC PO PRN (12:05)
[2022-11-10] MEDS ORDERED: MAALOX 30 ML SUSP *UDC PO PRN (12:05)
[2022-11-10] MEDS ORDERED: IBUPROFEN 400MG TAB PO PRN (12:05)
[2022-11-10 13:45] VITALS: BP 132/82; TEMP 96.8; O2SAT 99
[2022-11-10] MEDS: busPIRone 10 MG TAB PO SCH ×2 (16:00→21:51)
[2022-11-10] MEDS: AMOXICILLIN 500 MG CAP PO SCH ×2 (16:51→21:51)
[2022-11-10] MEDS: LACTOBACILLUS ACIDOPHILUS CAP (BACID) PO SCH (18:00)
[2022-11-10] MEDS: OLANZapine 5 MG TAB PO SCH (21:51)
[2022-11-10] MEDS: DIVALPROEX 500 MG TAB PO SCH (21:52)
[2022-11-11 06:12] VITALS: BP 130/81; TEMP 97.6; O2SAT 95
[2022-11-11] MEDS: ROSUVASTATIN 10 MG TAB (CRESTOR) PO SCH (09:40)
[2022-11-11] MEDS: DIVALPROEX 500 MG TAB PO SCH ×2 (09:40→21:20)
[2022-11-11] MEDS: LORATADINE 10 MG TAB PO SCH (09:40)
[2022-11-11] MEDS: busPIRone 10 MG TAB PO SCH ×4 (09:40→21:20)
[2022-11-11] MEDS: LACTOBACILLUS ACIDOPHILUS CAP (BACID) PO SCH ×2 (09:41→17:23)
[2022-11-11] MEDS: AMOXICILLIN 500 MG CAP PO SCH ×3 (09:42→21:20)
[2022-11-11] MEDS: NICOTINE 21MG/24HR 1 EA TRANSDERMAL TD SCH (10:42)
[2022-11-11 18:00] VITALS: BP 147/90; TEMP 97.4
[2022-11-11] MEDS: OLANZapine 5 MG TAB PO SCH (21:20)
[2022-11-12 06:43] VITALS: BP 124/64; TEMP 97; O2SAT 96
[2022-11-12 07:48] LABS: CHOLESTEROL LEVEL 80 MG/DL (<200); CHOLESTEROL RISK RATIO 4.87 (<5); HDL CHOLESTEROL 16.4 MG/DL (>40); LDL CHOLESTEROL 42.8 MG/DL (<100); NON-HDL-C 63.6 MG/DL; TRIGLYCERIDES LEVEL 104 MG/DL (<150)
[2022-11-12] MEDS: AMOXICILLIN 500 MG CAP PO SCH ×3 (08:45→22:14)
[2022-11-12] MEDS: busPIRone 10 MG TAB PO SCH ×3 (08:46→22:14)
[2022-11-12] MEDS: LACTOBACILLUS ACIDOPHILUS CAP (BACID) PO SCH ×2 (08:46→17:13)
[2022-11-12] MEDS: DIVALPROEX 500 MG TAB PO SCH ×2 (08:46→22:14)
[2022-11-12] MEDS: LORATADINE 10 MG TAB PO SCH (08:46)
[2022-11-12] MEDS: NICOTINE 21MG/24HR 1 EA TRANSDERMAL TD SCH (08:47)
[2022-11-12] MEDS: ROSUVASTATIN 10 MG TAB (CRESTOR) PO SCH (08:47)
[2022-11-12 12:02] LABS: ALBUMIN 3.2 G/DL (3.2-5.2); ALKALINE PHOSPHATASE 106 U/L (46-116); ALT/SGPT 51 U/L (7.0-40); AST/SGOT 30 U/L (<34); BILIRUBIN,TOTAL 1.1 MG/DL (0.3-1.2); BLOOD UREA NITROGEN 11 MG/DL (9-23); CALCIUM LEVEL 10.3 MG/DL (8.3-10.6); CARBON DIOXIDE LEVEL 30 MMOL/L (20-31); CHLORIDE LEVEL 102 MMOL/L (98-107); CREATININE FOR GFR 0.74 MG/DL (0.70-1.30); GLOMERULAR FILTRATION RATE > 60.0 (>49); GLUCOSE, FASTING 85 MG/DL (74-106); POTASSIUM SERUM 4.8 MMOL/L (3.5-5.1); SODIUM LEVEL 136 MMOL/L (136-145); TOTAL PROTEIN 7.6 G/DL (5.7-8.2)
[2022-11-12 13:37] LABS: HEMATOCRIT 41.5 % (42.0-52.0); HEMOGLOBIN 13.4 g/dl (13.5-17.5); MEAN CORPUSCULAR HEMOGLOBIN 28.6 pg (27.0-33.0); MEAN CORPUSCULAR HGB CONC 32.3 g/dl (32.0-36.5); MEAN CORPUSCULAR VOLUME 88.5 fl (80.0-96.0); PLATELET COUNT, AUTOMATED 527 10^3/uL (150-450); RED BLOOD COUNT 4.69 10^6/uL (4.30-6.10); WHITE BLOOD COUNT 9.6 10^3/uL (4.0-10.0)
[2022-11-12 16:51] VITALS: BP 136/69; TEMP 98.1; O2SAT 99
[2022-11-12] MEDS: OLANZapine 10 MG TAB PO SCH (22:15)
[2022-11-13 06:39] VITALS: BP 156/86; TEMP 97.8; O2SAT 95
[2022-11-13] MEDS: NICOTINE 21MG/24HR 1 EA TRANSDERMAL TD SCH (08:32)
[2022-11-13] MEDS: DIVALPROEX 500 MG TAB PO SCH ×2 (08:34→22:04)
[2022-11-13] MEDS: LACTOBACILLUS ACIDOPHILUS CAP (BACID) PO SCH ×2 (08:34→17:42)
[2022-11-13] MEDS: busPIRone 10 MG TAB PO SCH ×3 (08:34→22:05)
[2022-11-13] MEDS: AMOXICILLIN 500 MG CAP PO SCH ×3 (08:34→22:05)
[2022-11-13] MEDS: LORATADINE 10 MG TAB PO SCH (08:34)
[2022-11-13] MEDS: ROSUVASTATIN 10 MG TAB (CRESTOR) PO SCH (08:34)
[2022-11-13 16:56] VITALS: BP 124/84; TEMP 98.2; O2SAT 100
[2022-11-13] MEDS: traZODone 50 MG TAB PO PRN (22:04)
[2022-11-13] MEDS: OLANZapine 10 MG TAB PO SCH (22:04)
[2022-11-13] MEDS: LORazepam 1 MG TAB PO PRN (22:05)
[2022-11-14] MEDS: DIVALPROEX 500 MG TAB PO SCH ×2 (08:46→21:29)
[2022-11-14] MEDS: busPIRone 10 MG TAB PO SCH ×3 (08:47→21:29)
[2022-11-14] MEDS: LACTOBACILLUS ACIDOPHILUS CAP (BACID) PO SCH ×2 (08:47→17:28)
[2022-11-14] MEDS: ROSUVASTATIN 10 MG TAB (CRESTOR) PO SCH (08:47)
[2022-11-14] MEDS: AMOXICILLIN 500 MG CAP PO SCH ×3 (08:48→21:29)
[2022-11-14] MEDS: LORATADINE 10 MG TAB PO SCH (08:48)
[2022-11-14] MEDS: NICOTINE 21MG/24HR 1 EA TRANSDERMAL TD SCH (08:53)
[2022-11-14] MEDS ORDERED: LITHIUM CARBONATE 150 MG CAP PO SCH (09:00)
[2022-11-14] MEDS: LITHIUM CARBONATE 300 MG CAP PO SCH ×2 (13:55→21:29)
[2022-11-14 15:57] LABS: ALBUMIN 3.3 G/DL (3.2-5.2); ALKALINE PHOSPHATASE 92 U/L (46-116); ALT/SGPT 39 U/L (7.0-40); AST/SGOT 28 U/L (<34); BILIRUBIN,TOTAL 0.9 MG/DL (0.3-1.2); BLOOD UREA NITROGEN 10 MG/DL (9-23); CALCIUM LEVEL 9.4 MG/DL (8.3-10.6); CARBON DIOXIDE LEVEL 29 MMOL/L (20-31); CHLORIDE LEVEL 102 MMOL/L (98-107); CREATININE FOR GFR 0.73 MG/DL (0.70-1.30); GLOMERULAR FILTRATION RATE > 60.0 (>49); GLUCOSE, FASTING 88 MG/DL (74-106); POTASSIUM SERUM 4.6 MMOL/L (3.5-5.1); SODIUM LEVEL 136 MMOL/L (136-145); TOTAL PROTEIN 7.6 G/DL (5.7-8.2)
[2022-11-14 18:00] VITALS: BP 122/75; TEMP 97.3
[2022-11-14] MEDS: OLANZapine 10 MG TAB PO SCH (21:29)
[2022-11-14] MEDS: OMEGA-3 1000MG CAPSULE PO SCH (21:29)
[2022-11-14] MEDS: traZODone 50 MG TAB PO PRN (23:37)
[2022-11-14] MEDS: LORazepam 1 MG TAB PO PRN (23:37)
[2022-11-15 06:24] VITALS: BP 102/59; TEMP 98.1; O2SAT 98
[2022-11-15] MEDS: OMEGA-3 1000MG CAPSULE PO SCH ×2 (08:46→20:40)
[2022-11-15] MEDS: busPIRone 10 MG TAB PO SCH ×3 (08:46→20:40)
[2022-11-15] MEDS: ROSUVASTATIN 10 MG TAB (CRESTOR) PO SCH (08:46)
[2022-11-15] MEDS: LITHIUM CARBONATE 300 MG CAP PO SCH ×2 (08:47→20:40)
[2022-11-15] MEDS: LACTOBACILLUS ACIDOPHILUS CAP (BACID) PO SCH ×2 (08:47→17:39)
[2022-11-15] MEDS: NICOTINE 21MG/24HR 1 EA TRANSDERMAL TD SCH (08:47)
[2022-11-15] MEDS: DIVALPROEX 500 MG TAB PO SCH ×2 (08:47→20:40)
[2022-11-15] MEDS: AMOXICILLIN 500 MG CAP PO SCH ×3 (08:47→20:40)
[2022-11-15] MEDS: LORATADINE 10 MG TAB PO SCH (09:07)
[2022-11-15 17:56] VITALS: BP 118/75; TEMP 97.6
[2022-11-15] MEDS: OLANZapine 10 MG TAB PO SCH (20:40)
[2022-11-15] MEDS: traZODone 50 MG TAB PO PRN (20:40)
[2022-11-16 06:04] VITALS: BP 134/91; TEMP 97; O2SAT 95
[2022-11-16 07:07] LABS: VALPROIC ACID (DEPAKOTE) 71.8 UG/ML (50.0-100.0)
[2022-11-16 07:11] LABS: FREE THYROXINE INDEX 3.5 % (1.4-3.8); T UPTAKE 32.1 % (22.5-37.0); THYROID STIMULATING HORMONE 1.679 uIU/ML (0.55-4.78); THYROXINE (T4) 10.8 UG/DL (4.5-10.9)
[2022-11-16] MEDS: LACTOBACILLUS ACIDOPHILUS CAP (BACID) PO SCH ×2 (08:45→17:04)
[2022-11-16] MEDS: LORATADINE 10 MG TAB PO SCH (09:21)
[2022-11-16] MEDS: ROSUVASTATIN 10 MG TAB (CRESTOR) PO SCH (09:21)
[2022-11-16] MEDS: AMOXICILLIN 500 MG CAP PO SCH ×3 (09:21→20:53)
[2022-11-16] MEDS: OMEGA-3 1000MG CAPSULE PO SCH ×2 (09:22→20:53)
[2022-11-16] MEDS: busPIRone 10 MG TAB PO SCH ×3 (09:22→20:53)
[2022-11-16] MEDS: NICOTINE 21MG/24HR 1 EA TRANSDERMAL TD SCH (09:23)
[2022-11-16] MEDS: DIVALPROEX 500 MG TAB PO SCH ×2 (09:23→20:54)
[2022-11-16] MEDS: LITHIUM CARBONATE 300 MG CAP PO SCH (09:23)
[2022-11-16 18:22] VITALS: BP 133/81; TEMP 97.8
[2022-11-16] MEDS: LITHIUM CARBONATE 600MG CAP PO SCH (20:53)
[2022-11-16] MEDS: OLANZapine 5 MG TAB PO SCH (20:54)
[2022-11-17 06:38] VITALS: BP 130/77; TEMP 97.8; O2SAT 97
[2022-11-17] MEDS: AMOXICILLIN 500 MG CAP PO SCH ×3 (08:48→20:35)
[2022-11-17] MEDS: LORATADINE 10 MG TAB PO SCH (08:48)
[2022-11-17] MEDS: busPIRone 10 MG TAB PO SCH ×3 (08:49→20:35)
[2022-11-17] MEDS: ROSUVASTATIN 10 MG TAB (CRESTOR) PO SCH (08:49)
[2022-11-17] MEDS: DIVALPROEX 500 MG TAB PO SCH ×2 (08:50→20:35)
[2022-11-17] MEDS: LACTOBACILLUS ACIDOPHILUS CAP (BACID) PO SCH ×2 (08:50→18:31)
[2022-11-17] MEDS: OMEGA-3 1000MG CAPSULE PO SCH ×2 (08:50→20:35)
[2022-11-17] MEDS: NICOTINE 21MG/24HR 1 EA TRANSDERMAL TD SCH (08:51)
[2022-11-17] MEDS: LITHIUM CARBONATE 300 MG CAP PO SCH (08:51)
[2022-11-17 18:07] LABS: APPEARANCE, URINE CLEAR (CLEAR); BACTERIA, URINE AUTO NEGATIVE (NEGATIVE); BILIRUBIN, URINE AUTO NEGATIVE (NEGATIVE); BLOOD, URINE BLOOD NEGATIVE (NEGATIVE); COLOR, URINE YELLOW (YELLOW); GLUCOSE, URINE (UA) AUTO NEGATIVE (NEGATIVE); KETONE, URINE AUTO NEGATIVE (NEGATIVE); LEUKOCYTE ESTERASE, URINE AUTO NEGATIVE (NEGATIVE); NITRITE, URINE AUTO NEGATIVE (NEGATIVE); PROTEIN, URINE AUTO NEGATIVE (NEGATIVE); RBC, URINE AUTO 0 /HPF (0-3); SPECIFIC GRAVITY URINE AUTO 1.014 (1.002-1.035); SQUAMOUS EPITHELIAL CELL UR AU 0 /HPF (0-6); UROBILINOGEN, URINE AUTO 0.2 mg/dL (0.0-2.0); WBC, URINE AUTO 1 /HPF (0-3)
[2022-11-17 18:17] LABS: AMPHETAMINES LEVEL URINE NEGATIVE (NEGATIVE); BARBITURATES URINE NEGATIVE (NEGATIVE); BENZODIAZEPINES URINE NEGATIVE (NEGATIVE); COCAINE METABOLITE URINE NEGATIVE (NEGATIVE); METHADONE URINE NEGATIVE (NEGATIVE); OPIATES URINE NEGATIVE (NEGATIVE); PHENCYCLIDINE URINE NEGATIVE (NEGATIVE)
[2022-11-17 18:20] LABS: CANNABINOIDS URINE POSITIVE (NEGATIVE)
[2022-11-17 18:51] VITALS: BP 134/83; TEMP 97.1
[2022-11-17] MEDS: LITHIUM CARBONATE 600MG CAP PO SCH (20:35)
[2022-11-17] MEDS: OLANZapine 5 MG TAB PO SCH (20:35)
[2022-11-18 06:35] VITALS: BP 112/76; TEMP 98.2; O2SAT 98
[2022-11-18] MEDS: LACTOBACILLUS ACIDOPHILUS CAP (BACID) PO SCH ×2 (08:36→17:05)
[2022-11-18] MEDS: OMEGA-3 1000MG CAPSULE PO SCH (08:36)
[2022-11-18] MEDS: ROSUVASTATIN 10 MG TAB (CRESTOR) PO SCH (08:36)
[2022-11-18] MEDS: NICOTINE 21MG/24HR 1 EA TRANSDERMAL TD SCH (08:37)
[2022-11-18] MEDS: DIVALPROEX 500 MG TAB PO SCH (08:37)
[2022-11-18] MEDS: LITHIUM CARBONATE 300 MG CAP PO SCH (08:37)
[2022-11-18] MEDS: AMOXICILLIN 500 MG CAP PO SCH ×2 (08:37→16:57)
[2022-11-18] MEDS: LORATADINE 10 MG TAB PO SCH (08:37)
[2022-11-18] MEDS: busPIRone 10 MG TAB PO SCH ×2 (08:37→16:57)
[2022-11-18] MEDS ORDERED: LITH300C PO (12:47)
[2022-11-18] MEDS ORDERED: LITH600C PO (12:47)
[2022-11-18] MEDS ORDERED: OLAN1TAB16 PO (12:47)
== END 2022-11-18 18:05 | DRG 885 ==
LOC: M PSY 13:22
PROVIDERS: ADMIT Psychiatry & Neurology Psychiatry; ATTEND Student in an Organized Health Care Education/Training Program
DX: F31.9 Bipolar disorder, unspecified (principal); B06.0 Rubella with neurological complications; A69.29 Other conditions associated with Lyme disease; M06.9 Rheumatoid arthritis, unspecified; F12.10 Cannabis abuse, uncomplicated; D75.838 Other thrombocytosis; R74.01 Elevation of levels of liver transaminase levels; E78.5 Hyperlipidemia, unspecified; Z87.891 Personal history of nicotine dependence; Z79.899 Other long term (current) drug therapy